=== PATIENT | female | born 1965 | race Caucasian/White ===

== ENCOUNTER → 2018-05-14 | Outpatient (CLI) | payer OTHER | LOC: M WHC 09:59 | DX: Z12.31 Encounter for screening mammogram for malignant neoplasm of breast (principal) | CPT/HCPCS: 77067 ==

== ENCOUNTER → 2018-05-14 | Outpatient (REF) | payer OTHER ==
[2018-05-16 14:15] LABS: HPV HYBRID CAPTURE II Negative (Negative)
== END ==
LOC: M SFHCWAGY 10:08
DX: Z12.4 Encounter for screening for malignant neoplasm of cervix (principal)

== ENCOUNTER → 2019-06-30 | Outpatient (CLI) | payer OTHER ==
--- NOTE | 2019-06-30 13:16 | REPMRS ---
Patient History The patient states she had a clinical breast exam in 2019. Family history of breast cancer in maternal aunt, prostate cancer at age 50 or over in father. No Hormone Replacement Therapy Digital Woman Screen Mammo: June 30, 2019 - Exam #: [id number] Bilateral CC and MLO view(s) were taken. Technologist: Emilie Oh, Technologist Prior study comparison: May 14, 2018, bilateral digital woman screen mammo performed at [facility]. February 19, 2015, digital woman screen mammo performed at [facility]. FINDINGS: There are scattered fibroglandular densities. There has been no change in the appearance of the mammogram from the prior studies. There is a mild amount of scattered fibroglandular density which is fairly symmetric. There is no interval development of dominant mass, architectural distortion, or grouped microcalcification suggestive of malignancy. 3-D tomosynthesis shows no additional findings. Assessment: BI-RADS/ACR category 1 mammogram. Negative Mammogram. Recommendation Routine screening mammogram of both breasts in 1 year (for women over age 40). This patient's Lifetime Breast Cancer Risk is estimated at 16.2 %. This mammogram was interpreted with the aid of an FDA-approved computer-aided dectection system. Electronically Signed By: Domenico Medrano MD 06/30/19 [id number]
== END ==
LOC: M WHC 11:43
PROVIDERS: ATTEND Nurse Practitioner Women's Health
DX: Z12.31 Encounter for screening mammogram for malignant neoplasm of breast (principal)

== ENCOUNTER → 2020-09-01 | Outpatient (CLI) | payer BC ==
--- NOTE | 2020-09-01 15:14 | REPMRS ---
Patient History The patient states she has not had a clinical breast exam in over a year. Family history of breast cancer in maternal aunt, prostate cancer at age 50 or over in father. No Hormone Replacement Therapy 3D TOMOSYNTHESIS WAS PERFORMED. The Quinton Lopez lifetime risk for breast cancer is 15.8%. Volpara breast density a. Digital Woman Screen Mammo: September 01, 2020 - Exam #: [id number] Bilateral CC and MLO view(s) were taken. Technologist: RT Sulma Prior study comparison: June 30, 2019, bilateral digital woman screen mammo performed at [facility]. May 14, 2018, bilateral digital woman screen mammo performed at [facility]. FINDINGS: There are scattered fibroglandular densities. There has been no change in the appearance of the mammogram from the prior studies. There is a mild amount of residual fibroglandular tissue which is fairly symmetric. There is no interval development of dominant mass, architectural distortion, or clustered microcalcification suggestive of malignancy. Assessment: BI-RADS/ACR category 1 mammogram. Negative Mammogram. Recommendation Routine screening mammogram in 1 year (for women over age 40). This mammogram was interpreted with the aid of an FDA-approved computer-aided dectection system. Electronically Signed By: Jus Vu MD 09/01/20 [id number]
== END ==
LOC: M WHC 13:35
PROVIDERS: ATTEND Nurse Practitioner Women's Health
DX: Z12.31 Encounter for screening mammogram for malignant neoplasm of breast (principal)

== ENCOUNTER → 2022-03-23 | Outpatient (CLI) | payer BC | LOC: M WHC 07:54 | PROVIDERS: ATTEND Advanced Practice Midwife | DX: Z12.31 Encounter for screening mammogram for malignant neoplasm of breast (principal) ==

== ENCOUNTER → 2022-03-23 | Outpatient (REF) | payer BC | LOC: M PLALAB 10:29 | PROVIDERS: ATTEND Advanced Practice Midwife | DX: Z01.419 Encounter for gynecological examination (general) (routine) without abnormal findings (principal); Z12.4 Encounter for screening for malignant neoplasm of cervix ==

== ENCOUNTER 2022-12-01 08:23 | Day surgery (SDC) | payer BC ==
[~2022-12-01] VITALS: Ht 167.6 cm; Wt 113.6 kg
[~2022-12-01 08:23] MED LIST: GUSE100A SQ; NS 1,000 ML IV ONE
[2022-12-01] MEDS ORDERED: LIDOCAINE 2% 100MG/5ML SDV (FOR ANES.) As Ordered ONE (09:37)
[2022-12-01] MEDS ORDERED: propofoL 200 MG/20 ML VIAL As Ordered ONE ×2 (09:37→10:33)
[2022-12-01 10:36] VITALS: TEMP 97
[2022-12-01 10:55] VITALS: BP 108/62; O2SAT 99
== END 2022-12-01 11:03 | disposition home or self-care (01) ==
LOC: M OPP 08:23
PROVIDERS: ATTEND Internal Medicine Gastroenterology
DX: Z12.11 Encounter for screening for malignant neoplasm of colon (principal); D12.2 Benign neoplasm of ascending colon; K64.8 Other hemorrhoids; L40.9 Psoriasis, unspecified; F17.200 Nicotine dependence, unspecified, uncomplicated; Z79.899 Other long term (current) drug therapy; Z82.49 Family history of ischemic heart disease and other diseases of the circulatory system

== ENCOUNTER → 2025-03-05 | Outpatient (REF) | payer BC ==
[~2025-03-05] MED LIST changes: -NS 1,000 ML IV ONE
[2025-03-07 13:57] LABS: HPV APTIMA Not Detected (Not Detected)
== END ==
LOC: M SFHCWAGY 15:21
PROVIDERS: ATTEND Advanced Practice Midwife
DX: Z11.51 Encounter for screening for human papillomavirus (HPV) (principal)
CPT/HCPCS: 87624; G0123

== ENCOUNTER → 2025-03-05 | Outpatient (CLI) | payer BC | LOC: M WHC 13:00 | PROVIDERS: ATTEND Advanced Practice Midwife | DX: Z12.31 Encounter for screening mammogram for malignant neoplasm of breast (principal); R92.313 Mammographic fatty tissue density, bilateral breasts | CPT/HCPCS: 77063; 77067; 87624; G0123 ==